=== PATIENT | male | born 1950 | race Caucasian/White ===

== ENCOUNTER 2021-05-02 01:21 | Emergency (ER) | payer SELFPAY ==
[2021-05-02 01:29] VITALS: BP 182/96; PULSE 82; RESP 18; TEMP 97.8
--- NOTE | 2021-05-02 02:03 | ED ---
General Adult HPI - General Chief complaint: Recheck/Abnormal Lab/Rx Stated complaint: Covid test Time Seen by Provider: 05/02/21 01:30 Source: patient Mode of arrival: wheelchair Limitations: physical limitation - History of Present Illness Initial comments: 70-year-old male with a past medical history of hypertension presents to the emergency room for a chief of needing COVID test. Patient states he is traveling from [place] and has a surgery in [place] tomorrow. States that he needs a COVID test to enter the country. Patient denies any recent exposures or symptoms.Patient has no other complaints at this time including shortness of breath, chest pain, abdominal pain, nausea or vomiting, headache, or visual changes. - Related Data Allergies Allergy/AdvReac Type Severity Reaction Status Date / Time No Known Allergies Allergy Verified 05/02/21 01:29 Review of Systems ROS Statement: Those systems with pertinent positive or pertinent negative responses have been documented in the HPI. ROS Other: All systems not noted in ROS Statement are negative. Past Medical History Past Medical History: Hypertension Additional Past Medical History / Comment(s): bad left leg History of Any Multi-Drug Resistant Organisms: None Reported Past Surgical History: No Surgical Hx Reported Past Psychological History: No Psychological Hx Reported Smoking Status: Never smoker Past Alcohol Use History: None Reported Past Drug Use History: None Reported General Exam Limitations: physical limitation General appearance: alert Head exam: Present: atraumatic Eye exam: Present: normal appearance, PERRL, EOMI. Absent: scleral icterus, conjunctival injection ENT exam: Present: normal exam, mucous membranes moist Neck exam: Present: normal inspection, full ROM Respiratory exam: Present: normal lung sounds bilaterally. Absent: respiratory distress, wheezes Cardiovascular Exam: Present: regular rate, normal rhythm, normal heart sounds Course Vital Signs 05/02/21 01:24 Temperature 97.8 F Pulse Rate 82 Respiratory 18 Rate Blood Pressure 182/96 O2 Sat by Pulse 99 Oximetry Medical Decision Making - Medical Decision Making Vitals are stable. Patient is mildly hypertensive likely secondary to stress as he has been driving the past 3 days. Patient denies any symptoms. COVID neg. Patient can be discharged with follow-up with primary care, socially regarding blood pressure. He will return here for any worsening symptoms. - Lab Data Lab Results 05/02/21 Range/Units 01:33 Coronavirus (PCR) Not Detected (Not Detectd) Disposition Clinical Impression: Lab test negative for COVID-19 virus Disposition: HOME SELF-CARE Condition: Good Instructions (If sedation given, give patient instructions): Coronavirus Diseas e 2019 (COVID-19) Additional Instructions: Please follow-up with your doctor in one to 2 days. Please return to the emergency room for any worsening symptoms. Is patient prescribed a controlled substance at d/c from ED?: No Referrals: Neva Rutherford MD [REFERRING] - 1-2 days Time of Disposition: 02:01
== END 2021-05-02 02:17 | disposition home or self-care (01) ==
LOC: EC 01:21
DX: Z20.822 Contact with and (suspected) exposure to COVID-19 (principal); I10 Essential (primary) hypertension
CPT/HCPCS: 87635; 99282